=== PATIENT | male | born 1985 | race Caucasian/White ===

== ENCOUNTER 2016-10-29 13:08 | Emergency (ER) | payer MEDICAID ==
[~2016-10-29] VITALS: Ht 180.3 cm; Wt 65.0 kg
[~2016-10-29 13:08] MED LIST: HYDR-523 PO; ONDA4TAB5 PO
[2016-10-29] MEDS ORDERED: METOCLOPRAMIDE HCL 10MG/2ML VIAL IV STA (13:31)
[2016-10-29] MEDS ORDERED: SODIUM CHLORIDE 0.9% 1,000 ML IV ONE (13:31)
[2016-10-29] MEDS ORDERED: FAMOTIDINE 20MG/2ML VIAL IV STA (13:31)
[2016-10-29] MEDS ORDERED: MAGNESIUM/ALUMINUM HYDROXIDE/SIMETHICONE 30ML UDC PO STA (13:31)
[2016-10-29] MEDS ORDERED: DIPHENHYDRAMINE 50MG/ML VIAL IV ONE (13:45)
[2016-10-29 14:17] LABS: BASOPHILS % 0.7 % (0.0-2.0); EOSINOPHILS % 2.4 % (0.0-5.0); HEMATOCRIT. 44.8 % (42.0-52.0); HEMOGLOBIN. 14.8 g/dL (14.0-18.0); LYMPHOCYTES % 23.1 % (20.0-50.0); MEAN CORPUSCULAR HEMOGLOBIN 27.4 pg (28.0-32.0); MEAN CORPUSCULAR VOLUME 83.2 fL (80.0-94.0); MEAN PLATELET VOLUME 7.7 fl (7.4-10.4); MONOCYTES % 6.3 % (2.0-8.0); NEUTROPHILS % 67.5 % (40.0-76.0); PLATELET 394 x1000/uL (130-400); RED BLOOD CELL COUNT 5.39 mill/uL (4.7-6.1); RED CELL DISTRIBUTION WIDTH 16.6 % (11.6-14.6)
[2016-10-29 14:21] LABS: CHLORIDE 108 mEq/L (98-107)
[2016-10-29 14:23] LABS: INR 0.9; PROTHROMBIN TIME 9.8 sec (9.4-11.6)
[2016-10-29 14:24] LABS: CARBON DIOXIDE 29 mEq/L (21-32)
[2016-10-29] MEDS ORDERED: IOHEXOL-300 100 ML BOTTLE ONE (14:39)
[2016-10-29] MEDS ORDERED: SODIUM CHLORIDE 0.9% 10ML VIAL ONE (14:39)
[2016-10-29 15:32] LABS: GLUCOSE URINE NEGATIVE (NEGATIVE); KETONES URINE NEGATIVE (NEGATIVE); LEUKOCYTE ESTERASE URINE NEGATIVE (NEGATIVE); NITRITE URINE NEGATIVE (NEGATIVE); OCCULT BLOOD URINE 1+ (NEGATIVE); PROTEIN URINE NEGATIVE (NEGATIVE); SPECIFIC GRAVITY URINE 1.019 (1.005-1.030); UROBILINOGEN URINE 0.2 E.U./dL (0.2-1.0)
[2016-10-29 15:41] LABS: CLARITY URINE SL HAZY (CLEAR); COLOR URINE YELLOW (YELLOW)
[2016-10-29] MEDS ORDERED: ONDANSETRON HCL 4MG/2ML VIAL IV ONE (15:45)
[2016-10-29] MEDS ORDERED: MORPHINE SULFATE 4 MG/ML CPJ (NOT FOR IM USE) IV ONE (18:45)
[2016-10-29 19:13] VITALS: BP 114/65
== END 2016-10-29 19:31 | disposition home or self-care (01) ==
LOC: ER 13:28
DX: K56.7 Ileus, unspecified (principal); G89.29 Other chronic pain; Z90.49 Acquired absence of other specified parts of digestive tract; F12.10 Cannabis abuse, uncomplicated
CPT/HCPCS: 36415; 74177; 80053; 81001; 83690; 85025; 85610; 96361; 96374; 96375; 99285; A4216; J1200; J2270; J2405; J2765; J3490; J7030; Q9967; Z7610